=== PATIENT | female | born 1960 | race Hispanic/Latino ===

== ENCOUNTER 2017-03-04 12:29 | Emergency (ER) | payer BC ==
[2017-03-04 13:04] VITALS: RESP 18; TEMP 98.4; O2SAT 98; BMI 39.2
[2017-03-04] MEDS ORDERED: Sodium Chloride 0.9% 500 ML IV STA (13:29)
--- NOTE | 2017-03-04 13:33 | ED PDOC ---
Arrival/HPI - General Chief Complaint: Dizziness/Lightheaded Time Seen by Provider: 03/04/17 13:13 Historian: Patient, Spouse - History of Present Illness Time/Duration: Other (Yesterday) Symptom Onset: Sudden Symptom Course: Unchanged Severity Level: Moderate Activities at Onset: Sleeping Associated Symptoms (Text): 03/04/17 13:31 Patient woke up from sleep yesterday morning and when she got out of bed she felt very dizzy which she describes as a spinning sensation. There was some nausea and vomiting. She then felt better during the day. The symptoms occurred again this morning when she got out of bed. They have not resolved today. She feels dizzy as if the room is spinning. There is some nausea and vomiting. No headache. No numbness tingling or paresthesias. No weakness. No visual disturbance. No difficulty with ADLs. No speech difficulty. No difficulty walking. No chest pain palpitations or dyspnea. No abdominal pain. She has never experienced this previously. Past Medical History - Cardiac Hx Hypertension: Yes - Psychiatric Hx Substance Use: No - Surgical History Hx Arthroscopy: Yes (left knee) Other/Comment: Left elbow sx Family/Social History - Physician Review Nursing Documentation Reviewed: Yes Family/Social History: Unknown Family HX Smoking Status: Never Smoked Hx Alcohol Use: Yes Frequency of alcohol use: Socially Hx Substance Use: No Allergies/Home Meds Allergies/Adverse Reactions: Allergies No Known Allergies Allergy (Verified 03/04/17 13:04) Home Medications: Home Meds Medication Instructions Recorded Confirmed hydroCHLOROthiazide [Microzide] 50 mg PO DAILY 03/04/17 03/04/17 Review of Systems - Physician Review All systems were reviewed & negative as marked: Yes - Review of Systems Constitutional: Normal ENT: Normal Respiratory: Normal Cardiovascular: Normal Gastrointestinal: Nausea, Vomiting. absent: Abdominal Pain, Constipation, Diarrhea Genitourinary Female: absent: Dysuria, Frequency, Hematuria Neurological: Dizziness. absent: Headache, Focal Weakness, Gait Changes, Speech Changes, Facial Droop, Disequilibrium, Seizure Physical Exam Vital Signs Temp Pulse Resp BP Pulse Ox 03/04/17 13:29 72 18 170/99 H 98 03/04/17 13:02 98.4 F 65 18 181/103 H 98 Temperature: Afebrile Blood Pressure: Hypertensive Pulse: Regular Respiratory Rate: Normal Appearance: Positive for: Well-Appearing, Non-Toxic, Uncomfortable Pain Distress: None Mental Status: Positive for: Alert and Oriented X 3 - Systems Exam Head: Present: Atraumatic, Normocephalic Pupils: Present: PERRL Extroacular Muscles: Present: EOMI Conjunctiva: Present: Normal Ears: Present: NORMAL TM, Normal Canal. No: Erythema Mouth: Present: Moist Mucous Membranes Pharnyx: No: ERYTHEMA, EXUDATE, TONSILS ENLARGED Neck: Present: Normal Range of Motion. No: Meningeal Signs, MIDLINE TENDERNESS , Paraspinal Tenderness Respiratory/Chest: Present: Clear to Auscultation, Good Air Exchange. No: Respiratory Distress, Accessory Muscle Use Cardiovascular: Present: Regular Rate and Rhythm, Normal S1, S2. No: Murmurs Abdomen: Present: Normal Bowel Sounds. No: Tenderness, Distention, Peritoneal Signs, Rebound, Guarding Upper Extremity: Present: Normal Inspection. No: Cyanosis, Edema Lower Extremity: Present: Normal Inspection. No: Edema Neurological: Present: GCS=15, CN II-XII Intact, Speech Normal, Motor Func Grossly Intact, Normal Sensory Function, Normal Cerebellar Funct, Gait Normal Skin: Present: Warm, Dry, Normal Color. No: Rashes Psychiatric: Present: Alert, Oriented x 3, Normal Insight, Normal Concentration Medical Decision Making ED Course and Treatment: 03/04/17 13:49 EKG shows normal sinus rhythm rate approximately [address] or T-wave changes 03/04/17 14:36 CT scan of the head as read by the radiologist shows no acute findings. 03/04/17 14:45 Symptoms markedly improved. Workup is unrevealing. She will be discharged home accompanied by . Needs PMD follow-up for hypertension check. Follow-up in the ER as needed. Prescription for Zofran and Antivert. - Lab Interpretations Lab Results: 03/04/17 14:04 03/04/17 14:04 Lab Results 03/04/17 14:04: Sodium 141, Potassium 3.7, Chloride 100, Carbon Dioxide 32, Anion Gap 13, BUN 19, Creatinine 0.6, Est GFR ( Amer) > 60, Est GFR (Non- Af Amer) > 60, Random Glucose 114 H, Calcium 9.5, Total Bilirubin 0.8, AST 19, ALT 22, Alkaline Phosphatase 78, Lactate Dehydrogenase 410, Total Creatine Kinase 61, Troponin I < 0.01, Total Protein 7.6, Albumin 4.2, Globulin 3.5, Albumin/Globulin Ratio 1.2 03/04/17 14:04: WBC 7.1, RBC 4.35, Hgb 12.3, Hct 36.9, MCV 84.8, MCH 28.3, MCHC 33.3, RDW 13.0, Plt Count 292, MPV 9.5, Gran % 73.3 H, Lymph % (Auto) 18.9 L, [place] % (Auto) 6.0, Eos % (Auto) 0.9 L, Baso % (Auto) 0.9, Gran # 5.18, Lymph # 1.3, [place] # 0.4, Eos # 0.1, Baso # 0.06 - RAD Interpretation Radiology Orders: 03/04/17 13:29 HEAD W/O CONTRAST [CT] Stat - Medication Orders Current Medication Orders: Discontinued Medications Sodium Chloride (Sodium Chloride 0.9%) 500 mls @ 1,000 mls/hr IV .Q30M STA Stop: 03/04/17 13:58 Last Admin: 03/04/17 14:07 Dose: 1,000 mls/hr Meclizine HCl (Antivert) 25 mg PO ONCE ONE Stop: 03/04/17 13:31 Last Admin: 03/04/17 14:02 Dose: 25 mg Ondansetron HCl (Zofran Inj) 4 mg IVP ONCE ONE Stop: 03/04/17 13:31 Last Admin: 03/04/17 14:02 Dose: 4 mg Disposition/Present on Arrival - Present on Arrival Any Indicators Present on Arrival: No History of DVT/PE: No History of Uncontrolled Diabetes: No Urinary Catheter: No History of Decub. Ulcer: No History Surgical Site Infection Following: None - Disposition Have Diagnosis and Disposition been Completed?: Yes Diagnosis: Vertigo, Nausea and vomiting, Hypertension Disposition: HOME/ ROUTINE Disposition Time: 14:46 Patient Plan: Discharge Condition: IMPROVED Discharge Instructions (ExitCare): Vertigo (ED), Hypertension (ED), Acute Nausea and Vomiting (ED) Additional Instructions: Follow-up with PMD for hypertension check. Follow-up in the ER as needed. Prescriptions: Meclizine [Meclizine*] 25 mg PO Q6 #20 tab Ondansetron [Zofran Odt] 4 mg SL Q6 #20 odt Forms: WORK NOTE
[2017-03-04 14:05] LABS: ADD MANUAL DIFF? NO
[2017-03-04 14:16] LABS: BASO # 0.06 K/mm3 (0.0-2.0); BASO % 0.9 % (0.0-3.0); EOS # 0.1 (0.0-0.7); EOS % 0.9 % (1.5-5.0); GRAN # 5.18 (1.4-6.5); GRAN % 73.3 % (50.0-68.0); HEMATOCRIT 36.9 % (36.0-48.0); LYMPH # 1.3 (1.2-3.4); LYMPH % 18.9 % (22.0-35.0); MEAN CELL VOLUME 84.8 fL (80.0-105.0); MEAN CORPUSCULAR HEMOGLOBIN 28.3 pg (25.0-35.0); MEAN CORPUSCULAR HGB CONC 33.3 g/dl (31.0-37.0); MEAN PLATELET VOLUME 9.5 fl (7.0-11.0); MONO # 0.4 (0.1-0.6); PLATELET COUNT 292 10^3/uL (120.0-450.0); WHITE BLOOD COUNT 7.1 10^3/ul (4.5-11.0)
[2017-03-04 14:23] LABS: ALB/GLOB RATIO 1.2 (1.1-1.8); ALKALINE PHOSPHATASE 78 U/L (38-133); ALT/SGPT 22 U/L (7-56); AST/SGOT 19 U/L (15-39); BILIRUBIN,TOTAL 0.8 mg/dL (0.2-1.3); BLOOD UREA NITROGEN 19 mg/dL (7-21); CALCIUM 9.5 mg/dL (8.4-10.5); CARBON DIOXIDE 32 mmol/L (21-33); CHLORIDE 100 mmol/L (98-107); GFR AFRICAN-AMERICAN > 60; GLUCOSE,RANDOM 114 mg/dL (70-110); POTASSIUM 3.7 mmol/L (3.6-5.0); SODIUM 141 mmol/L (132-148); TOTAL PROTEIN 7.6 g/dL (5.8-8.3)
--- NOTE | 2017-03-04 14:26 | CT ---
PROCEDURE: CT HEAD WITHOUT CONTRAST. HISTORY: dizzy COMPARISON: None available. TECHNIQUE: Axial computed tomography images were obtained through the head/brain without intravenous contrast. Radiation dose: Total exam DLP = 725 mGy-cm. This CT exam was performed using one or more of the following dose reduction techniques: Automated exposure control, adjustment of the mA and/or kV according to patient size, and/or use of iterative reconstruction technique. FINDINGS: HEMORRHAGE: No intracranial hemorrhage. BRAIN: No mass effect or edema. No atrophy or chronic microvascular ischemic changes. VENTRICLES: Unremarkable. No hydrocephalus. CALVARIUM: Unremarkable. PARANASAL SINUSES: Unremarkable as visualized. No significant inflammatory changes. MASTOID AIR CELLS: Unremarkable as visualized. No inflammatory changes. OTHER FINDINGS: None. IMPRESSION: Normal CT of the Head.
[2017-03-04 14:34] LABS: TROPONIN I < 0.01 ng/mL
[2017-03-04 14:51] VITALS: BP 148/92; PULSE 61
--- NOTE | 2017-03-05 09:22 | CARD ---
APPROVED REPORT EKG Measurement Heart [id number] <Conclusion> Normal sinus rhythm Normal ECG
== END 2017-03-04 14:52 | disposition home or self-care (01) ==
LOC: ED 12:29
DX: I10 Essential (primary) hypertension (principal); R42 Dizziness and giddiness; R11.2 Nausea with vomiting, unspecified
CPT/HCPCS: 70450; 80053; 82550; 83615; 84484; 85025; 93005; 96374; 99285; J2405; J7040